=== PATIENT | male | born 1980 | race Caucasian/White ===

== ENCOUNTER 2017-11-17 11:29 | Emergency (ER) | payer MEDICAID ==
[~2017-11-17] VITALS: Ht 185.4 cm; Wt 80.0 kg
[~2017-11-17 11:29] MED LIST: CLON-529 PO; ONDA8TAB9 PO
[2017-11-17 12:01] VITALS: BP 118/66
[2017-11-17] MEDS ORDERED: DOXY100C43 PO (13:48)
== END 2017-11-17 14:06 | disposition home or self-care (01) ==
LOC: ER 11:29
DX: D21.9 Benign neoplasm of connective and other soft tissue, unspecified (principal); L03.012 Cellulitis of left finger; F15.10 Other stimulant abuse, uncomplicated; Z56.0 Unemployment, unspecified; Z59.0 Homelessness; Z60.2 Problems related to living alone
CPT/HCPCS: 99284

== ENCOUNTER 2017-12-04 03:14 | Emergency (ER) | payer MEDICAID ==
[~2017-12-04] VITALS: Ht 182.9 cm; Wt 72.7 kg
[2017-12-04] MEDS ORDERED: CLIN-80 PO (03:43)
[2017-12-04 03:54] VITALS: BP 111/66
== END 2017-12-04 03:56 | disposition home or self-care (01) ==
LOC: ER 03:15
DX: L02.512 Cutaneous abscess of left hand (principal); F15.10 Other stimulant abuse, uncomplicated; Z59.0 Homelessness; Z56.0 Unemployment, unspecified; Z60.2 Problems related to living alone; Z79.899 Other long term (current) drug therapy
CPT/HCPCS: 99283

== ENCOUNTER 2018-06-03 17:41 | Emergency (ER) | payer MEDICAID ==
[~2018-06-03] VITALS: Ht 182.9 cm; Wt 69.0 kg
[2018-06-03] MEDS ORDERED: clindamycin 600mg/D5W 50ml 50 ML IV ONE (19:15)
[2018-06-03] MEDS ORDERED: CLIN150C2 PO (19:49)
[2018-06-03 19:57] VITALS: BP 127/77
== END 2018-06-03 19:59 | disposition home or self-care (01) ==
LOC: ER 17:42
DX: L03.113 Cellulitis of right upper limb (principal); F17.200 Nicotine dependence, unspecified, uncomplicated; F15.90 Other stimulant use, unspecified, uncomplicated; Z79.899 Other long term (current) drug therapy; Z56.0 Unemployment, unspecified; Z59.0 Homelessness; Z60.2 Problems related to living alone
CPT/HCPCS: 96365; 99284; J3490

== ENCOUNTER 2019-05-29 11:58 | Emergency (ER) | payer MEDICAID ==
[~2019-05-29] VITALS: Ht 182.9 cm; Wt 75.0 kg
[2019-05-29 12:03] VITALS: BP 108/75
--- NOTE | 2019-05-29 12:35 | NUR ---
ATTEMPTED TO CALL PATY
--- NOTE | 2019-05-29 12:35 | NUR ---
GIRLFRIEND PATY [phone]
[2019-05-29] MEDS ORDERED: TETanus/Pertussis (Acell)/Diphther VAC/PF (Tdap-Adult) 0.5ml syringe IMVAC ONE (12:40)
--- NOTE | 2019-05-29 12:47 | NUR ---
PATIENT PROVIDED BAGGED LUNCH
[2019-05-29] MEDS ORDERED: LIDOcaine 1% w/epiNEPHrine 1:200,000 30ml vial SQ ONE (13:05)
== END 2019-05-29 14:02 | disposition home or self-care (01) ==
LOC: ER 11:59
DX: L72.3 Sebaceous cyst (principal); F17.200 Nicotine dependence, unspecified, uncomplicated; F15.90 Other stimulant use, unspecified, uncomplicated; Z56.0 Unemployment, unspecified; Z59.0 Homelessness; Z79.899 Other long term (current) drug therapy
CPT/HCPCS: 10060; 90471; 99283

== ENCOUNTER 2019-06-04 10:24 | Emergency (ER) | payer MEDICAID | END 2019-06-04 10:44 | disposition left against medical advice (07) | LOC: ER 10:26 | DX: R22.42 Localized swelling, mass and lump, left lower limb (principal); Z53.21 Procedure and treatment not carried out due to patient leaving prior to being seen by health care provider ==

== ENCOUNTER 2019-07-01 14:53 | Emergency (ER) | payer MEDICAID ==
[~2019-07-01] VITALS: Ht 185.4 cm; Wt 80.0 kg
[2019-07-01 15:14] VITALS: BP 136/88
[2019-07-01 16:00] LABS: BASOPHILS # (AUTO) 0.1 X10'3 (0-0.2); EOSINOPHILS # (AUTO) 0.1 X10'3 (0-0.9); LYMPHOCYTES # (AUTO) 1.2 X10'3 (1.1-4.8)
[2019-07-01 16:02] LABS: EOSINOPHILS % (AUTO) 2.5 % (0-6); HEMATOCRIT 35.8 % (42.0-52.0); HEMOGLOBIN 12.1 g/dl (14.0-17.9); LYMPHOCYTES % (AUTO) 27.7 % (21-51); MEAN CORPUSCULAR HEMOGLOBIN 32.6 PG (27.0-31.0); MEAN CORPUSCULAR HGB CONC 33.9 g/dL (33.0-36.5); MEAN CORPUSCULAR VOLUME 96.2 FL (78-98); MEAN PLATELET VOLUME 6.6 FL (7.4-10.4); MONOCYTES # (AUTO) 0.6 X10'3 (0-0.9); MONOCYTES % (AUTO) 13.9 % (2-12); NEUTROPHILS # (AUTO) 2.4 X10'3 (1.8-7.7); NEUTROPHILS % (AUTO) 53.9 % (42-75); PLATELET COUNT 181 X10'3 (140-440); RED BLOOD COUNT 3.72 X10'6 (4.70-6.10); WHITE BLOOD COUNT 4.4 X10'3 (4.5-11.0)
[2019-07-01 16:11] LABS: ALANINE AMINOTRANSFERASE 25 U/L (12-78); ALBUMIN 2.9 G/DL (3.4-5.0); ALBUMIN/GLOBULIN RATIO 0.5 (1.1-1.5); ALKALINE PHOSPHATASE 100 IU/L (46-116); ANION GAP 12 (8-16); ASPARTATE AMINO TRANSFERASE 64 U/L (10-37); BILIRUBIN,TOTAL 0.3 MG/DL (0.1-1.0); BLOOD UREA NITROGEN 9 MG/DL (7-18); BUN/CREATININE RATIO 12.7 (5.4-32.0); CALCIUM 9.8 MG/DL (8.5-10.1); CHLORIDE 104 MMOL/L (99-107); CREATININE 0.71 MG/DL (0.60-1.10); GLUCOSE 104 MG/DL (70-104); SODIUM 141 MMOL/L (135-145); TOTAL CARBON DIOXIDE 24.8 MMOL/L (24-32); TOTAL PROTEIN 8.7 G/DL (6.4-8.2); eGFR > 90 ML/MIN
--- NOTE | 2019-07-01 16:24 | NUR ---
Note undone in EDM - 07/01/19 at 1632 by TROY To start, I soaked the patients foot in iodine and warm water for 20 minutes. I was present with Valdez Griffin PA-C at bedside with patient. Patient stated that he wanted to leave because "he wanted a smoke and a beer". Provider stated that he would give him a nicotein patch and start a prot. to help with patients withdraw symptoms. Patient continued to refused KELLI Esposito advice. KELLI Banks told the patient that the infection is in the bone and if left untreated would have possible repro. of patient losing the foot and even . I joined into the conversation by telling the patient "the meds they give you for DT will help". Patient stated that he was worried about having a seizure. KELLI Griffin continued to convince the patien t to
[2019-07-01 16:28] LABS: TOTAL CELLS COUNTED 100
[2019-07-01 16:29] LABS: PLATELET ESTIMATE NORMAL
--- NOTE | 2019-07-01 16:29 | NUR ---
NOTE CONTINUED: to convince the patient to stay. Patient refused. Was advised again that it is to late for oral meds and the poss. of the pt losing the foot and or is very high.
--- NOTE | 2019-07-01 16:32 | NUR ---
To start, I soaked the patients foot in iodine and warm water for 20 minutes. I was present with Valdez Griffin PA-C at bedside with patient. Patient stated that he wanted to leave because "he wanted a smoke and a beer". Provider stated that he would give him a patch and start a prot. to help with patients withdraw symptoms. Patient continued to refuse KELLI Esposito advice. KELLI Banks told the patient that the infection is in the bone and if left untreated would have possible repro. of patient losing the foot and even . I joined into the conversation by telling the patient "the meds they give you for DT will help". Patient stated that he was worried about having a seizure. KELLI Griffin continued to convince the patient to
== END 2019-07-01 16:42 | disposition left against medical advice (07) ==
LOC: ER 14:54
DX: M86.9 Osteomyelitis, unspecified (principal); M79.672 Pain in left foot; F10.10 Alcohol abuse, uncomplicated; F15.90 Other stimulant use, unspecified, uncomplicated; Z56.0 Unemployment, unspecified; Z79.899 Other long term (current) drug therapy; Y90.9 Presence of alcohol in blood, level not specified
CPT/HCPCS: 73630; 80053; 85025; 99283; 99284; 99406

== ENCOUNTER 2019-07-04 20:57 | Inpatient (IN) | payer MEDICAID ==
[~2019-07-04] VITALS: Ht 182.9 cm; Wt 76.0 kg
[2019-07-04] MEDS ORDERED: normal saline 1000ML IV soln IV ONE (21:20)
[2019-07-04] MEDS ORDERED: iohexol 300mg/ml 100ml inj. ONE (21:41)
[2019-07-04 21:50] LABS: BASOPHILS # (AUTO) 0.1 X10'3 (0-0.2); BASOPHILS % (AUTO) 1.2 % (0-1); EOSINOPHILS # (AUTO) 0.1 X10'3 (0-0.9); EOSINOPHILS % (AUTO) 1.6 % (0-6); HEMATOCRIT 36.5 % (42.0-52.0); HEMOGLOBIN 12.3 g/dl (14.0-17.9); LYMPHOCYTES # (AUTO) 1.2 X10'3 (1.1-4.8); LYMPHOCYTES % (AUTO) 17.7 % (21-51); MEAN CORPUSCULAR HEMOGLOBIN 32.5 PG (27.0-31.0); MEAN CORPUSCULAR HGB CONC 33.6 g/dL (33.0-36.5); MEAN CORPUSCULAR VOLUME 96.6 FL (78-98); MONOCYTES # (AUTO) 0.7 X10'3 (0-0.9); NEUTROPHILS # (AUTO) 4.7 X10'3 (1.8-7.7); NEUTROPHILS % (AUTO) 69.5 % (42-75); PLATELET COUNT 216 X10'3 (140-440); RED BLOOD COUNT 3.78 X10'6 (4.70-6.10); RED CELL DISTRIBUTION WIDTH 13.5 % (11.5-14.5); WHITE BLOOD COUNT 6.8 X10'3 (4.5-11.0)
[2019-07-04 21:52] LABS: PARTIAL THROMBOPLASTIN TIME 31 SECONDS (22-32)
[2019-07-04 22:04] LABS: ALANINE AMINOTRANSFERASE 35 U/L (12-78); ALBUMIN 2.9 G/DL (3.4-5.0); ALBUMIN/GLOBULIN RATIO 0.5 (1.1-1.5); ALKALINE PHOSPHATASE 105 IU/L (46-116); ANION GAP 10 (8-16); ASPARTATE AMINO TRANSFERASE 85 U/L (10-37); BILIRUBIN,TOTAL 0.3 MG/DL (0.1-1.0); BLOOD UREA NITROGEN 10 MG/DL (7-18); BUN/CREATININE RATIO 10.4 (5.4-32.0); CALCIUM 9.2 MG/DL (8.5-10.1); CHLORIDE 105 MMOL/L (99-107); CREATININE 0.96 MG/DL (0.60-1.10); GLUCOSE 113 MG/DL (70-104); MAGNESIUM 1.7 MG/DL (1.5-2.4); POTASSIUM 3.6 MMOL/L (3.5-5.1); SODIUM 142 MMOL/L (135-145); TOTAL CARBON DIOXIDE 27.1 MMOL/L (24-32); TOTAL PROTEIN 8.9 G/DL (6.4-8.2); eGFR 87 ML/MIN
[2019-07-04] MEDS ORDERED: vancomycin/NS 1 GM ADD-VANTAGE 250 ML IV ONE (22:25)
[2019-07-04] MEDS ORDERED: piperacillin/tazo 3.375gm/50ml 50 ML IV ONE (22:25)
--- NOTE | 2019-07-04 22:51 | NUR ---
hospitalist at bedside for admission assessment.
[2019-07-04] MEDS ORDERED: mag hydrox/Alum hydrox/simeth 30ml oral suspension PO PRN (23:00)
[2019-07-04] MEDS ORDERED: ondansetron/PF 4mg/2ml inj IV PRN (23:00)
[2019-07-04] MEDS ORDERED: haloperidol 5mg tablet PO PRN (23:00)
[2019-07-04] MEDS ORDERED: HYDROcodone/acetaminophen 5mg/325mg tablet PO PRN (23:00)
[2019-07-04] MEDS ORDERED: dextrose 50%-water 50ml dispensing syringe IV PRN (23:00)
[2019-07-04] MEDS ORDERED: thiamine 100mg/ml 2ml inj. IV ONE (23:00)
[2019-07-04] MEDS ORDERED: haloperidol lactate 5mg/ml inj IM PRN (23:00)
[2019-07-04] MEDS ORDERED: magnesium hydroxide 30ml (MOM) UD suspension PO PRN (23:00)
[2019-07-04] MEDS ORDERED: acetaminophen 325mg tablet PO PRN ×2 (23:00)
--- NOTE | 2019-07-04 23:18 | NUR ---
PT GIVEN JELLO, APPLESAUCE, AND JUICE UPON REQUEST. PT UPDATED ON PLAN OF CARE, PT VERBALIZED UNDERSTANDING AND ALL QUESTIONS ANSWERED AT THIS TIME.
[2019-07-04] MEDS: normal saline 1000ml 1,000 ML IV SCH (23:27)
[2019-07-04] MEDS ORDERED: nicotine 14mg patch - 24hr TD ONE (23:30)
--- NOTE | 2019-07-04 23:56 | NUR ---
Pt arrived via gurney. Able to ambulate to ortho bed. Nursing aid at bedside assisting patient into gown at this time. Tele monitor to be placed. Pt verbalized understanding for education provided on POC, call light, staff, operation of call light, bed and tv.
[2019-07-05] VITALS (18 sets, daily range): BP systolic 104–134; BP diastolic 60–81
[2019-07-05 00:02] LABS: CLARITY,URINE CLEAR (Clear); COLOR,URINE YELLOW (Yellow); GLUCOSE, URINE NEGATIVE (Neg); KETONES,URINE NEGATIVE (Neg); LEUKOCYTE ESTERASE ,URINE NEGATIVE (Neg); NITRITES, URINE NEGATIVE (Neg); OCCULT BLOOD,URINE NEGATIVE (Neg); PH,URINE 6.5 (4.8-8.0); PROTEIN,URINE TRACE mg/dl (Neg); UROBILINOGEN,URINE 0.2 E.U/dL (0.2-1.0)
[2019-07-05 00:05] LABS: UA COLLECTION TYPE URINAL
[2019-07-05 00:07] LABS: BACTERIA,URINE NONE SEEN /HPF (Neg); RBC,URINE NONE SEEN /HPF (0-2); SQUAMOUS EPITHELIAL CELL,UR NONE SEEN /LPF (FEW); WBC,URINE NONE SEEN /HPF (0-4)
[2019-07-05] MEDS: LORazepam 2 mg/ml vial IV PRN ×4 (00:42→21:59)
[2019-07-05] MEDS: vancomycin/NS 1 GM ADD-VANTAGE 250 ML IV SCH ×3 (05:34→21:59)
[2019-07-05 06:15] LABS: EOSINOPHILS # (AUTO) 0.1 X10'3 (0-0.9); EOSINOPHILS % (AUTO) 2.1 % (0-6); HEMATOCRIT 31.1 % (42.0-52.0); HEMOGLOBIN 10.5 g/dl (14.0-17.9); LYMPHOCYTES % (AUTO) 20.8 % (21-51); MEAN CORPUSCULAR HEMOGLOBIN 33.1 PG (27.0-31.0); MEAN CORPUSCULAR HGB CONC 33.8 g/dL (33.0-36.5); MEAN CORPUSCULAR VOLUME 97.9 FL (78-98); MEAN PLATELET VOLUME 7.3 FL (7.4-10.4); MONOCYTES # (AUTO) 0.8 X10'3 (0-0.9); MONOCYTES % (AUTO) 15.6 % (2-12); NEUTROPHILS % (AUTO) 60.5 % (42-75); PLATELET COUNT 165 X10'3 (140-440); RED BLOOD COUNT 3.18 X10'6 (4.70-6.10); RED CELL DISTRIBUTION WIDTH 13.5 % (11.5-14.5)
--- NOTE | 2019-07-05 06:18 | NUR ---
Report given to Angel WALL.
[2019-07-05 06:34] LABS: ALBUMIN 2.2 G/DL (3.4-5.0); ANION GAP 9 (8-16); BLOOD UREA NITROGEN 8 MG/DL (7-18); BUN/CREATININE RATIO 9.9 (5.4-32.0); CALCIUM 7.9 MG/DL (8.5-10.1); CHLORIDE 108 MMOL/L (99-107); CREATININE 0.81 MG/DL (0.60-1.10); GLUCOSE 92 MG/DL (70-104); POTASSIUM 3.1 MMOL/L (3.5-5.1); SODIUM 142 MMOL/L (135-145); TOTAL CARBON DIOXIDE 25.4 MMOL/L (24-32); eGFR > 90 ML/MIN
--- NOTE | 2019-07-05 06:39 | NUR ---
Patient in room ORTHO 4006. I have received report from Lauren WALL and had the opportunity to ask questions and assume patient care.
[2019-07-05] MEDS ORDERED: CefTRIAXone/D5W-Rocephin 1gm 50 ML IV SCH (08:00)
[2019-07-05] MEDS ORDERED: enoxaparin 40mg/0.4ml syringe SUBCUT SCH (08:00)
[2019-07-05] MEDS: lactobacillus rhamnosus 10,000 MMU CELLS/CAPSULE PO SCH ×2 (08:06→19:37)
[2019-07-05] MEDS: normal saline 1000ml 1,000 ML IV SCH ×2 (08:08→16:02)
[2019-07-05] MEDS ORDERED: NO HOME MEDS (08:13)
[2019-07-05] MEDS ORDERED: potassium CL 10mEq/100ml bag 100 ML IV PRN (09:30)
[2019-07-05] MEDS ORDERED: potassium Cl 20 mEq SR tablet PO PRN ×2 (09:30)
[2019-07-05 11:35] LABS: MAGNESIUM 1.4 MG/DL (1.5-2.4); POTASSIUM 3.7 MMOL/L (3.5-5.1)
--- NOTE | 2019-07-05 11:56 | NUR ---
Patient report given, to Angel WALL.
--- NOTE | 2019-07-05 12:01 | NUR ---
WOUND INFECTION EDUCATION PROVIDED BY WOUND CARE 1. Patient instructed to call their primary doctor, or go the ED immediately if any of the following symptoms occur: * Increased pain in wound * Increase in drainage from the wound * Redness in the skin surrounding the wound * Warmth in the skin surrounding the wound * Bleeding from the wound * Temperature of 101 or greater 2. If any of these occur while in the hospital tell a nurse immediately. Addendum: 07/05/19 at 1201 by Hua River RN Amended: Links added.
[2019-07-05] MEDS ORDERED: magnesium 4gm in 100ml NS 100 ML IV PRN (12:10)
[2019-07-05] MEDS ORDERED: BUPIVAcaine/PF 2.5 mg/ml (0.25%) 30ml vial ONE ×2 (12:49→14:43)
[2019-07-05] MEDS: magnesium Cl slow-release 64mg tablet PO PRN ×2 (12:54→19:37)
--- NOTE | 2019-07-05 13:09 | NUR ---
Problems reprioritized. Patient report given, questions answered & plan of care reviewed with Vicky Araiza in recovery.
--- NOTE | 2019-07-05 13:40 | NUR ---
patient left floor for I &D of left foot.
--- NOTE | 2019-07-05 13:45 | NUR ---
student Lissette Patel gave 2mg Ativan IVP with instructor, double clicked med and computer showed med administered without scanning pt or medication vial, 5 rights was completed before administration by student and further communication with RN explained that double clicking on highlighted med can override scan.
--- NOTE | 2019-07-05 14:07 | NUR ---
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 Hx etoh; RD d/w RN regarding thiamin/folic/MVI per MD approval given hx. Pt PO 100% regular diet meeting healing needs. No BM yet this admit. No nutrition concerns at this time. Will continue to monitor. Rec: 1. continue regular diet 2. thiamin/folic/MVI per MD given etoh hx 3. routine bowel care 4. wt per rx Addendum: 07/05/19 at [address] Amended: Links added.
[2019-07-05] MEDS ORDERED: fentaNYL/PF 50MCG/1 ML 2ML syringe ONE (14:15)
[2019-07-05] MEDS ORDERED: sevoflurane 250ml liquid IH ONE (14:16)
--- NOTE | 2019-07-05 14:53 | NUR ---
Received from OR via ORTHO BED WITH TERA , accompanied by Anesthesiologist ALBIN and report given by Anesthesiolgist. PATIENT WITH 20G PIV IN RIGHT UE RUNNING LR AT 100. MEDICATED FOR PAIN UPON ARRIVAL. LEFT FOOT VINNIE BANDAGES ARE CDI. + CAP REFILL TO TOES. VSS. ISTAT DRAWN. LENO. Addendum: 07/05/19 at 1524 by Marc Romero RN, RN Amended: Links added.
[2019-07-05] MEDS ORDERED: dexamethasone sod phosphate 4mg/ml inj. ONE (14:54)
[2019-07-05] MEDS ORDERED: propofol inj 20 ML IV ONE (14:54)
[2019-07-05] MEDS ORDERED: ondansetron/PF 4mg/2ml inj ONE (14:54)
[2019-07-05] MEDS ORDERED: neostigmine methylsulfate 1 MG/ML 10ml vial ONE (14:54)
[2019-07-05] MEDS ORDERED: LIDOcaine 2% (20mg/ml) 5ml vial ONE (14:54)
[2019-07-05] MEDS ORDERED: rocuronium 10mg/ml inj IV ONE (14:54)
[2019-07-05] MEDS ORDERED: glycopyrrolate 0.2mg/ml inj ONE (14:54)
[2019-07-05] MEDS ORDERED: ringers solution, lacted 1,000 ML IV SCH (14:59)
[2019-07-05] MEDS ORDERED: meperidine/PF 25mg/ml syringe IV PRN ×3 (15:00)
[2019-07-05] MEDS ORDERED: proCHLORperazine 10 MG/2 ml inj IV PRN (15:00)
[2019-07-05] MEDS ORDERED: ondansetron/PF 4mg/2ml inj IV PRN (15:00)
[2019-07-05] MEDS ORDERED: morphine 4 MG/ML inj SYRINge IV PRN ×2 (15:00)
[2019-07-05] MEDS ORDERED: meperidine/PF 25mg/ml syringe ONE (15:03)
[2019-07-05 15:20] LABS: ISTAT ANION GAP 11 (8-12); ISTAT BUN 4 mg/dL (6-19); ISTAT CL 103 mmol/L (99-107); ISTAT CREATININE 0.6 mg/dL (0.8-1.3); ISTAT GLUCOSE 94 mg/dL (70-104); ISTAT HGB 11.2 g/dl (14.0-18.0); ISTAT Hct 33 %PCV (42-52); ISTAT IONIZED CALCIUM 1.19 mmol/L (1.03-1.32); ISTAT K 3.9 mmol/L (3.5-5.1); ISTAT NA 139 mmol/L (135-145); ISTAT TOTAL CO2 25 mmol/L (24-32); ISTAT eGFR > 90 ML/MIN; POC BUN/CREATININE RATIO 6.7 (5.4-32.0)
--- NOTE | 2019-07-05 15:33 | NUR ---
Report called to receiving nurse ALEJANDRA WALL. Transferred via ORTHO BED WITH NO Belongings . Special Issues communicated to receiving nurse.ALL CRITERIA FOR TRANSFER TO THE FLOOR HAS BEEN ACHIEVED. VSS. BED LOW, CALL LIGHT AND VS. SET IN PLACE. RN PRESENT TO ACCEPT CARE. PATIENT RESTING COMFORTABLY IN BED. BELONGINGS SENT WITH PATIENT. DRESSINGS CDI. Addendum: 07/05/19 at 1548 by Marc Romero RN RN Amended: Links added.
--- NOTE | 2019-07-05 15:36 | NUR ---
Patient in room ORTHO 4006. I have received report from Jael WALL and had the opportunity to ask questions and assume patient care.
--- NOTE | 2019-07-05 15:53 | NUR ---
patient back on floor. started post op vitals
--- NOTE | 2019-07-05 18:00 | NUR ---
Received report from Angel WALL. assumed care of patient.
--- NOTE | 2019-07-05 18:05 | NUR ---
Problems reprioritized. Patient report given, questions answered & plan of care reviewed with Cindi RN.
[2019-07-05] MEDS ORDERED: VANCOMYCIN LEVEL IV ONE (21:30)
--- NOTE | 2019-07-06 01:48 | NUR ---
pt stated that they wanted to be discharged because he didn't want to be here anymore. I educated the patient on the importance of staying on the unit to monitor and make sure he's okay. He stated that he would stay if he could get his telemetry order discontinued because the stickers were bothering him. I called Dr. Adams and told him that telemetry called and said the patient's p waves were disappearing at times. is aware of this and stated if he wanted it off he could have it off. discontinued his telemetry and will continue to monitor patient.
[2019-07-06 02:00] VITALS: BP 114/70
--- NOTE | 2019-07-06 03:13 | NUR ---
Patient decided to pull out his IV. he stated that he wanted to leave and didn't care about receiving antibiotics. Called Dr. Adams. Dr. Adams advised him to stay, I educated the patient on the possibility of an infection and amputation. patient still decided to leave. Pt signed the AMA form and security escorted him out of the building.
--- NOTE | 2019-07-06 03:24 | NUR ---
Patient went AMA and then lab called with positive blood cultures of cocci in chains to the aerobic bottle from iv start.
[2019-07-06] MEDS ORDERED: LORazepam 1 MG tablet PO PRN (23:00)
[2019-07-06] MEDS ORDERED: LORazepam 2 mg/ml vial IV PRN (23:00)
[2019-07-08] MEDS ORDERED: LORazepam 1 MG tablet PO PRN (23:00)
[2019-07-08] MEDS ORDERED: LORazepam 2 mg/ml vial IV PRN (23:00)
== END 2019-07-06 03:06 | disposition left against medical advice (07) | DRG 314 ==
LOC: ER 20:58 → ED HOLD 23:08 → CMPBEDREQ 23:49 → ORTHO 4S 23:50
PROVIDERS: ADMIT Hospitalist; ATTEND Internal Medicine
PROC: BQ2S1ZZ Computerized Tomography (CT Scan) of Left Lower Extremity using Low Osmolar Contrast (ICD-10-PCS; 2019-07-04)
PROC: 0S9N0ZZ Drainage of Left Metatarsal-Phalangeal Joint, Open Approach (ICD-10-PCS; principal; 2019-07-05 14:16)
DX: M86.8X7 Other osteomyelitis, ankle and foot (principal); K74.60 Unspecified cirrhosis of liver; L03.116 Cellulitis of left lower limb; F10.10 Alcohol abuse, uncomplicated; F11.90 Opioid use, unspecified, uncomplicated; F12.90 Cannabis use, unspecified, uncomplicated; F15.10 Other stimulant abuse, uncomplicated; F17.200 Nicotine dependence, unspecified, uncomplicated; Z53.29 Procedure and treatment not carried out because of patient's decision for other reasons; L02.612 Cutaneous abscess of left foot; D63.8 Anemia in other chronic diseases classified elsewhere; E87.6 Hypokalemia
CPT/HCPCS: 36415; 71045; 73701; 80047; 80048; 80053; 80202; 81001; 81003; 82948; 83605; 83735; 84132; 84145; 85025; 85610; 85730; 87040; 87070; 87077; 87081; 87186; 93005; 96374; 99285; A4618; A6222; A6446; A6449; A7000; G0378; J0696; J1100; J1650; J2001; J2060; J2175; J2405; J2543; J2704; J2710; J3010; J3370; J3411; J3490; J7030; J7120; Q9967

== ENCOUNTER 2019-07-15 08:53 | Emergency (ER) | payer MEDICAID ==
[~2019-07-15] VITALS: Ht 182.9 cm; Wt 77.5 kg
[~2019-07-15 08:53] MED LIST changes: -CLON-529 PO; +NO HOME MEDS; -ONDA8TAB9 PO
--- NOTE | 2019-07-15 09:41 | NUR ---
IV STARTED, LAB/BLOOD CULTURES DRAWN, XRAY AT BEDSIDE PER ORDERS NOW, PT ASKED ME TO CALL HIS GIRLFRIEND PATY TO LET HER KNOW HE IS AT HOSPTIAL, CALLED [phone] NOTIFIED [place] PT IS IN ED NOW, PATY STATES SHE WILL COME TO ED, PT NOTIFIED.
[2019-07-15 09:53] LABS: HEMATOCRIT 35.7 % (42.0-52.0); MEAN CORPUSCULAR HEMOGLOBIN 32.5 PG (27.0-31.0); MEAN CORPUSCULAR HGB CONC 33.5 g/dL (33.0-36.5); MEAN CORPUSCULAR VOLUME 96.8 FL (78-98); MEAN PLATELET VOLUME 6.9 FL (7.4-10.4); PLATELET COUNT 290 X10'3 (140-440); RED BLOOD COUNT 3.69 X10'6 (4.70-6.10); RED CELL DISTRIBUTION WIDTH 13.7 % (11.5-14.5); WHITE BLOOD COUNT 3.7 X10'3 (4.5-11.0)
[2019-07-15 10:00] LABS: CLARITY,URINE CLEAR (Clear); COLOR,URINE STRAW (Yellow); GLUCOSE, URINE NEGATIVE (Neg); KETONES,URINE NEGATIVE (Neg); LEUKOCYTE ESTERASE ,URINE NEGATIVE (Neg); NITRITES, URINE NEGATIVE (Neg); OCCULT BLOOD,URINE NEGATIVE (Neg); PH,URINE 6.5 (4.8-8.0); PROTEIN,URINE NEGATIVE (Neg); UA COLLECTION TYPE VOIDED; UROBILINOGEN,URINE 0.2 E.U/dL (0.2-1.0)
[2019-07-15 10:00] LABS: PARTIAL THROMBOPLASTIN TIME 32 SECONDS (22-32)
[2019-07-15 10:04] LABS: ALANINE AMINOTRANSFERASE 33 U/L (12-78); ALBUMIN 3.1 G/DL (3.4-5.0); ALBUMIN/GLOBULIN RATIO 0.6 (1.1-1.5); ALKALINE PHOSPHATASE 85 IU/L (46-116); ANION GAP 10 (8-16); ASPARTATE AMINO TRANSFERASE 68 U/L (10-37); BILIRUBIN,TOTAL 0.3 MG/DL (0.1-1.0); BLOOD UREA NITROGEN 10 MG/DL (7-18); BUN/CREATININE RATIO 10.5 (5.4-32.0); CALCIUM 8.7 MG/DL (8.5-10.1); CHLORIDE 101 MMOL/L (99-107); CREATININE 0.95 MG/DL (0.60-1.10); GLUCOSE 94 MG/DL (70-104); POTASSIUM 4.1 MMOL/L (3.5-5.1); SODIUM 136 MMOL/L (135-145); TOTAL CARBON DIOXIDE 25.1 MMOL/L (24-32); TOTAL PROTEIN 8.4 G/DL (6.4-8.2); eGFR 88 ML/MIN
[2019-07-15 10:14] LABS: TOTAL CELLS COUNTED 100
[2019-07-15 10:15] LABS: PLATELET ESTIMATE NORMAL
[2019-07-15 11:03] VITALS: BP 137/66
--- NOTE | 2019-07-15 11:06 | NUR ---
CALLED [phone] NOTIFIED PATY PT GIRLFRIEND PER PT REQUEST THAT HE IS BEING DISHARGED AND WALKING TO HIS RESIDENCE NOW.
== END 2019-07-15 11:07 | disposition home or self-care (01) ==
LOC: ER 08:54
DX: L08.9 Local infection of the skin and subcutaneous tissue, unspecified (principal); M79.672 Pain in left foot; F15.90 Other stimulant use, unspecified, uncomplicated; Z56.0 Unemployment, unspecified
CPT/HCPCS: 36415; 73630; 80053; 81003; 83605; 84145; 85025; 85610; 85730; 87040; 99284

== ENCOUNTER 2019-07-17 12:48 | Emergency (ER) | payer MEDICAID ==
[~2019-07-17] VITALS: Ht 182.9 cm; Wt 76.0 kg
[2019-07-17 12:48] VITALS: BP 122/84
--- NOTE | 2019-07-17 13:14 | NUR ---
PT GIVEN CRUTCHES
== END 2019-07-17 13:32 | disposition left against medical advice (07) ==
LOC: ER 12:48
DX: T81.49XA Infection following a procedure, other surgical site, initial encounter (principal); L03.116 Cellulitis of left lower limb; F10.99 Alcohol use, unspecified with unspecified alcohol-induced disorder; F15.90 Other stimulant use, unspecified, uncomplicated; Z98.890 Other specified postprocedural states; Z56.0 Unemployment, unspecified; Y90.9 Presence of alcohol in blood, level not specified; Y83.8 Other surgical procedures as the cause of abnormal reaction of the patient, or of later complication, without mention of misadventure at the time of the procedure; Y92.89 Other specified places as the place of occurrence of the external cause
CPT/HCPCS: 99281

== ENCOUNTER 2024-12-13 11:57 | Emergency (ER) | payer MEDICAID ==
[~2024-12-13] VITALS: Ht 182.9 cm; Wt 67.7 kg
[2024-12-13 12:02] VITALS: BP 127/83; PULSE 104; RESP 15; O2SAT 97
[2024-12-13] MEDS: dexamethasone sod phosphate 10mg/ml inj IM STA (12:49)
[2024-12-13] MEDS ORDERED: PERM60CR27 TOP (13:05)
[2024-12-13] MEDS ORDERED: PRED20TA PO (13:06)
[2024-12-13 13:18] VITALS: TEMP 98.5
== END 2024-12-13 13:23 | disposition home or self-care (01) ==
LOC: ER 11:57
DX: B86 Scabies (principal); F15.90 Other stimulant use, unspecified, uncomplicated; F10.90 Alcohol use, unspecified, uncomplicated; Z56.0 Unemployment, unspecified; Z98.890 Other specified postprocedural states; Y90.9 Presence of alcohol in blood, level not specified
CPT/HCPCS: 96372; 99283; J1100

== ENCOUNTER 2024-12-20 11:12 | Emergency (ER) | payer MEDICAID ==
[~2024-12-20] VITALS: Ht 182.9 cm; Wt 63.8 kg
[~2024-12-20 11:12] MED LIST changes: +PERM60CR27 TOP; +PRED20TA PO
[2024-12-20] MEDS ORDERED: TRIA15CR61 TOP (12:28)
[2024-12-20 12:51] VITALS: BP 118/67; PULSE 75; RESP 18; TEMP 98.2; O2SAT 100
== END 2024-12-20 12:54 | disposition home or self-care (01) ==
LOC: ER 11:12
DX: L23.89 Allergic contact dermatitis due to other agents (principal); F15.90 Other stimulant use, unspecified, uncomplicated; F10.90 Alcohol use, unspecified, uncomplicated; Z98.890 Other specified postprocedural states; Z79.899 Other long term (current) drug therapy; Z56.0 Unemployment, unspecified; Y90.9 Presence of alcohol in blood, level not specified
CPT/HCPCS: 99283